=== PATIENT | male | born 1995 | race Caucasian/White ===

== ENCOUNTER → 2016-10-30 | Outpatient (CLI) | payer OTHER ==
[~2016-10-30] VITALS: Ht 175.3 cm; Wt 65.8 kg
[~2016-10-30] MED LIST: PRILOSEC 20 MG20 MG PO
--- NOTE | ~2016-10-30 | S ---
[facility] [place] [address] SURGICAL PATH RPT PROCEDURE Name: DANIEL ZHANG Room #: REG [facility]..#: [id number] Admission: 10/30/16 Date of : 89 Discharge: Report #: [id number] Path Case #: [id number] PATHOLOGY REPORT COLLECTION DATE: 10/30/2016 RECEIVED DATE: 10/30/2016 SUBMITTING PHYS: Dr. Ollie Zhong OTHER PHYS: Dr. Marcellus Slater SPECIMEN(S) RECEIVED: A.Distal esophagus * * * * * * * * * * * * FINAL DIAGNOSIS: Gastroesophageal mucosa, distal esophagus, endoscopic biopsy: - Gastric cardia-type mucosa with moderate active inflammation. - Negative for intestinal metaplasia or dysplasia. - Focal squamous mucosa showing mild esophagitis. (IUV:csd; d/t: 10/31/2016) PATHOLOGIST: Ginger Pretty M.D. REPORT ELECTRONICALLY SIGNED BY: Ginger Pretty M.D. DATE/TIME: 10/31/2016 15:12 * * * * * * * * * * * * GROSS PATHOLOGY: Received in formalin labeled "Daniel Zhang and distal esophagus," are 2 segments of bennett soft tissue measuring 0.9 x 0.3 x 0.2 cm in aggregate dimensions and measuring 0.4 and 0.5 cm in maximum dimension. The specimen is submitted entirely in cassette A1. (TTL; 10/30/2016) CLINICAL HISTORY: History of England's, reflux INITIAL CPT CODE(S): A; 30244 Professional services performed by [facility] at [facility] [address] [place] [address] Technical services performed by [facility] at [address] [place] [id number] [facility] [address] [place] [address] SURGICAL PATH RPT PROCEDURE Name: DANIEL ZHANG Room #: REG [facility] Patterson#: [id number] Admission: 10/30/16 Date of : [birth year] Discharge: Report #: [id number] Path Case #: [id number] [address] PHONE: [phone] DIRECTOR: Kendrick Herrera M.D. * * * END OF REPORT * * *
--- NOTE | ~2016-10-30 | P ---
[facility] [place] [address] PROCEDURE REPORT Name: MEIRDANIEL DRIVER Room #: REG [facility].#: [id number] Admission: 10/30/16 Attend Phys: Ollie Oliver Discharge: Date of : 89 Report #: [id number] THIS REPORT FOR: //name// CC: Ollie Slater DATE OF SERVICE: 10/30/2016 PROCEDURE PERFORMED: Upper endoscopy with biopsies. 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 He is here for a followup. There was no dysplasia on the previous biopsy. He also has a history of irritable bowel syndrome. He is taking Prilosec 20 mg on a daily basis. He denies any significant symptoms at this time. DESCRIPTION OF PROCEDURE: The risks and benefits of the procedure were explained to the patient, those risks including but not limited to bleeding, perforation, the risk of sedation. He understood these risks and gave informed consent. Sedation was given using propofol per anesthesia. Next, using a standard [employer] upper endoscope, the scope was placed in the patient's mouth and advanced under direct vision through the esophagus, stomach and into the second portion of the duodenum. The upper and mid esophagus were normal in appearance. In the distal esophagus, there were 2 small short segment of England's noted. No evidence of esophagitis. Biopsies were obtained. Upon entering the stomach, a small hiatal hernia was once again noted. Overall, the gastric mucosa was normal. The pylorus was normal and patent. The duodenal bulb, first and second portion were all normal. The scope was then withdrawn and the procedure terminated. The patient tolerated the procedure well. IMPRESSION: 1. Short segment England's esophagus. 2. Small hiatal hernia. 3. Otherwise, normal upper endoscopy. RECOMMENDATIONS: 1. Await biopsy results. 2. Continue PPI therapy. [address] [address] PROCEDURE REPORT Name: DANIEL WORLEY Room #: REG [facility] Patterson#: [id number] Admission: 10/30/16 Attend Phys: Ollie Oliver Discharge: Date of : 89 Report #: [id number] Thank you for allowing me to participate in his care. <ELECTRONICALLY SIGNED> By: Ollie Zhong MD 10/30/16 [id number] Ollie Zhong MD /nt
== END | disposition home or self-care (01) ==
LOC: GI 07:38
DX: K21.0 Gastro-esophageal reflux disease with esophagitis (principal); K22.70 Barrett's esophagus without dysplasia; K58.9 Irritable bowel syndrome, unspecified; K44.9 Diaphragmatic hernia without obstruction or gangrene
CPT/HCPCS: 62110; 62900